=== PATIENT | male | born 1990 | race Hispanic/Latino ===

== ENCOUNTER 2019-06-10 22:57 | Emergency (ER) | payer BC ==
--- NOTE | 2019-06-11 00:06 | EDM.PDOC ---
ED HPI GENERAL MEDICAL PROBLEM - General Chief Complaint: Drug or Alcohol Abuse Stated Complaint: TOO MUCH ALCOHOL Time Seen by Provider: 06/11/19 00:05 - History of Present Illness INITIAL COMMENTS - FREE TEXT/NARRATIVE: 29-year-old male brought into the emergency room after having too much to drink. Patient states he had too much to drink. He does not drink have on a regular basis and does not plan on doing it again any time soon. He has some mild nausea no vomiting. He just doesn't feel very well. He denies any trauma trips or falls. Patient denies any significant past medical history he is not on any routine medications is not aware of any allergies. Bilateral Hand Pain Score (Numeric/FACES): 1 - Related Data Allergies Allergy/AdvReac Type Severity Reaction Status Date / Time No Known Allergies Allergy Verified 06/10/19 23:11 Home Meds: Home Meds . [Unable to Verify Home Med List] 06/10/19 [History] Past Medical History - Past Health History Medical/Surgical History: Denies Medical/Surgical History Musculoskeletal History: Reports: Other (See Below) Other Musculoskeletal History: shoulder issues (possible bicep and patino injury) Psychiatric History: Reports: ADHD, Bipolar - Infectious Disease History Infectious Disease History: Reports: Chicken Pox Social & Family History - Family History Family Medical History: Noncontributory - Tobacco Use Smoking Status *Q: Current Every Day Smoker Years of Tobacco use: 19 Packs/Tins Daily: 2 - Caffeine Use Caffeine Use: Reports: Coffee, Energy Drinks, Soda, Tea - Recreational Drug Use Recreational Drug Use: Yes Drug Use in Last 12 Months: Yes Recreational Drug Type: Reports: Marijuana/Hashish, Methamphetamine ED ROS GENERAL - Review of Systems Review Of Systems: See Below Constitutional: Reports: No Symptoms HEENT: Reports: No Symptoms Respiratory: Reports: No Symptoms Cardiovascular: Reports: No Symptoms GI/Abdominal: Reports: Nausea. Denies: Abdominal Pain, Constipation, Diarrhea, Vomiting : Reports: No Symptoms ED EXAM, GENERAL - Physical Exam Exam: See Below Exam Limited By: No Limitations General Appearance: Alert, No Apparent Distress, Other (He is intoxicated but cooperative) Ears: Normal External Exam, Normal Canal, Hearing Grossly Normal, Normal TMs Nose: Normal Inspection, Normal Mucosa, No Blood Throat/Mouth: Normal Inspection, Normal Lips, Normal Teeth, Normal Gums, Normal Oropharynx, Normal Voice, No Airway Compromise Head: Atraumatic, Normocephalic Neck: Normal Inspection, Supple, Non-Tender, Full Range of Motion. No: Lymphadenopathy (L), Lymphadenopathy (R) Respiratory/Chest: No Respiratory Distress, Lungs Clear, Normal Breath Sounds, No Accessory Muscle Use, Chest Non-Tender Cardiovascular: Normal Peripheral Pulses, Regular Rate, Rhythm, No Edema, No Gallop, No JVD, No Murmur, No Rub GI/Abdominal: Normal Bowel Sounds, Soft, No Mass Back Exam: Normal Inspection. No: CVA Tenderness (L), CVA Tenderness (R) Extremities: Normal Inspection, No Pedal Edema Neurological: Alert, Oriented, Other (His thought process is a little slow) Skin Exam: Warm, Dry, Intact Course - Vital Signs Last Recorded V/S: Last Vital Signs Temp 36.5 C 06/10/19 23:07 Pulse 93 06/10/19 23:07 Resp 19 06/10/19 23:07 BP 126/76 06/10/19 23:07 Pulse Ox 95 06/10/19 23:07 - Orders/Labs/Meds Orders: Active Orders 24 hr Category Date Time Status DRUG SCREEN, URINE [URCHEM] Stat Lab 06/11/19 00:18 Ordered URINALYSIS W/MICROSCOPIC [UA W/MICROSCOPIC] [URIN] Stat Lab 06/11/19 00:18 Ordered Labs: Laboratory Tests 06/11/19 06/11/19 Range/Units 00:35 00:35 WBC 10.06 H (4.23-9.07) K/mm3 RBC 5.21 (4.63-6.08) M/mm3 Hgb 15.9 (13.7-17.5) gm/dl Hct 46.6 (40.1-51.0) % MCV 89.4 (79.0-92.2) fl MCH 30.5 (25.7-32.2) pg MCHC 34.1 (32.2-35.5) g/dl RDW Std Deviation 41.8 (35.1-43.9) fL Plt Count 260 (163-337) K/mm3 MPV 8.4 L (9.4-12.3) fl Neutrophils % (Manual) 35 L (40-60) % Band Neutrophils % 0 (0-10) % Lymphocytes % (Manual) 49 H (20-40) % Atypical Lymphs % 0 % Monocytes % (Manual) 15 H (2-10) % Eosinophils % (Manual) 1 (0.8-7.0) % Basophils % (Manual) 0 L (0.2-1.2) Platelet Estimate Adequate Plt Morphology Comment Normal RBC Morph Comment Normal Sodium 141 (136-145) mEq/L Potassium 4.3 (3.5-5.1) mEq/L Chloride 107 (98-107) mEq/L Carbon Dioxide 22 (21-32) mEq/L Anion Gap 16.3 H (5-15) BUN 16 (7-18) mg/dL Creatinine 1.0 (0.7-1.3) mg/dL Est Cr Clr Drug Dosing 99.24 mL/min Estimated GFR (MDRD) > 60 (>60) mL/min BUN/Creatinine Ratio 16.0 (14-18) Glucose 102 (74-106) mg/dL Calcium 8.7 (8.5-10.1) mg/dL Total Bilirubin 0.8 (0.2-1.0) mg/dL AST 47 H (15-37) U/L ALT 169 H (16-63) U/L Alkaline Phosphatase 96 (46-116) U/L Total Protein 7.8 (6.4-8.2) g/dl Albumin 4.4 (3.4-5.0) g/dl Globulin 3.4 gm/dL Albumin/Globulin Ratio 1.3 (1-2) Ethyl Alcohol 0.14 (0.00) gm% Meds: Medications Discontinued Medications Generic Name Dose Route Start Last Admin Trade Name Nani PRN Reason Stop Dose Admin Acetaminophen 975 mg 06/11/19 05:23 Tylenol PO 06/11/19 05:24 ONETIME ONE Lactated Ringer's 1,000 mls @ 999 mls/hr 06/11/19 00:11 06/11/19 00:35 Ringers, Lactated IV 06/11/19 01:11 999 mls/hr .BOLUS ONE Administration Ondansetron HCl 4 mg 06/11/19 00:12 06/11/19 00:36 Zofran IVPUSH 06/11/19 00:13 4 mg ONETIME ONE Administration - Re-Assessments/Exams Free Text/Narrative Re-Assessment/Exam: 06/11/19 05:29 Patient is sobered up and has a little bit of a headache but he is doing much better he would like to go home. Departure - Departure Time of Disposition: :29 Disposition: Home, Self-Care 01 Clinical Impression: Alcohol intoxication - Discharge Information Referrals: PCP,None [Primary Care Provider] - Additional Instructions: Return to the emergency room with any questions problems or worsening symptoms. - My Orders Last 24 Hours: My Active Orders 06/11/19 00:18 DRUG SCREEN, URINE [URCHEM] Stat URINALYSIS W/MICROSCOPIC [UA W/MICROSCOPIC] [URIN] Stat - Assessment/Plan Last 24 Hours: My Active Orders 06/11/19 00:18 DRUG SCREEN, URINE [URCHEM] Stat URINALYSIS W/MICROSCOPIC [UA W/MICROSCOPIC] [URIN] Stat
[2019-06-11] MEDS ORDERED: Lactated Ringers 1,000 ML IV ONE (00:11)
[2019-06-11] MEDS ORDERED: Ondansetron 4 MG/2 ML SDV IVPUSH ONE (00:12)
[2019-06-11] MEDS ORDERED: Acetaminophen Soln 650 MG/20.3 ML UD Cup PO ONE (05:23)
== END 2019-06-11 05:45 | disposition home or self-care (01) ==
LOC: JD.ED 22:57
DX: F10.120 Alcohol abuse with intoxication, uncomplicated (principal); F17.210 Nicotine dependence, cigarettes, uncomplicated
CPT/HCPCS: 36415; 80053; 80320; 85007; 85027; 96361; 96374; 99284; A9270; J2405; J7120; 99283; G0480

== ENCOUNTER 2019-11-09 10:07 | Emergency (ER) | payer BC, MEDICAID ==
--- NOTE | 2019-11-09 10:40 | EDM.PDOC ---
ED HPI GENERAL MEDICAL PROBLEM - General Chief Complaint: Respiratory Problem Stated Complaint: COUGH/MUCUS/HEADACHE/CLOGGED EARS Time Seen by Provider: 11/09/19 10:29 Source of Information: Reports: Patient History Limitations: Reports: No Limitations - History of Present Illness INITIAL COMMENTS - FREE TEXT/NARRATIVE: 29-year-old male presents to the ED with an acute upper respiratory tract infection with marked nasal congestion low-grade fever no headache bilateral fullness in his ears with inability to equilibrate due to eustachian tube dysfunction. Harsh paroxysmal productive cough for the last 5 days coughed enough to vomit almost every hour during the night last night. Got sent home from work due to illness. Most 2 packs a day and vapes a good portion of the day as well. 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 In contact with people from [place] and [place]. Onset: Sudden Onset Date: 11/03/19 Duration: Day(s):, Getting Worse (More more short of breath.) Location: Reports: Face (Unable to equilibrate his eustachian tubes. Fullness in his ears and sinuses.), Chest Quality: Reports: Other Severity: Severe (Chest pain from coughing so hard) Improves with: Reports: None Worsens with: Reports: Other Context: Reports: Sick Contact. Denies: Activity (Coughing makes everything worse.), Exercise, Lifting, Trauma, Other (Workplace) Associated Symptoms: Reports: Chest Pain, Cough, cough w sputum, Fever/Chills, Loss of Appetite, Malaise, Shortness of Breath, Weakness. Denies: No Other Symptoms (Coughing so much.), Confusion, Diaphoresis, Nausea/Vomiting, Rash, Seizure, Syncope Treatments HOME COORDINATOR: Reports: Other (see below) Other Treatments HOME COORDINATOR: Nyquil Headache Pain Score (Numeric/FACES): 1 - Related Data Allergies Allergy/AdvReac Type Severity Reaction Status Date / Time No Known Allergies Allergy Verified 11/09/19 10:25 Home Meds: Home Meds Cefdinir [Omnicef] 300 mg PO BID #20 cap 11/09/19 [Rx] Hydrocodone/Chlorphen P-Stirex [Hydrocodone-Chlorphen ER Susp] 5 ml PO Q12H PRN #60 ml 11/09/19 [Rx] Loratadine/Pseudoephedrine [Claritin-D 12 Hour] 1 tab PO Q12HR #16 tab.er [Rx] Past Medical History - Past Health History Medical/Surgical History: Denies Medical/Surgical History Musculoskeletal History: Reports: Other (See Below) Other Musculoskeletal History: shoulder issues (possible bicep and patino injury) Psychiatric History: Reports: ADHD, Bipolar - Infectious Disease History Infectious Disease History: Reports: Chicken Pox Social & Family History - Family History Family Medical History: Noncontributory - Tobacco Use Smoking Status *Q: Current Every Day Smoker Years of Tobacco use: 17 Packs/Tins Daily: 2 - Caffeine Use Caffeine Use: Reports: Coffee, Energy Drinks, Soda - Recreational Drug Use Recreational Drug Use: Yes Drug Use in Last 12 Months: Yes Recreational Drug Type: Reports: Marijuana/Hashish Recreational Drug Use Frequency: Rarely - Living Situation & Occupation Living situation: Reports: (Children at home that have been ill last week as well with minor upper respiratory tract symptoms) Occupation: Employed ED ROS GENERAL - Review of Systems Review Of Systems: See Below Constitutional: Reports: Fever, Chills, Malaise, Weakness, Fatigue, Decreased Appetite, Other (Paroxysmal cough and shortness of breath). Denies: Weight Loss HEENT: Reports: Ear Pain, Sinus Problem (This in his ears and unable to equilibrate pressure due to eustachian tube occlusion. Particular over both maxillary sinuses) Respiratory: Reports: Shortness of Breath, Cough, Sputum, Hemoptysis (Has noted traces of blood in his coughing this morning.). Denies: Wheezing, Pleuritic Chest Pain Cardiovascular: Reports: Chest Pain, Dyspnea on Exertion. Denies: Blood Pressure Problem, Claudication (Upper chest pain from coughing so much.), Edema , Lightheadedness, Orthopnea Endocrine: Reports: Fatigue GI/Abdominal: Reports: Decreased Appetite : Reports: No Symptoms Musculoskeletal: Reports: No Symptoms Skin: Reports: No Symptoms Neurological: Reports: Dizziness, Weakness. Denies: Confusion, Headache, Numbness, Syncope, Tingling, Tremors, Trouble Speaking, Difficulty Walking Psychiatric: Reports: No Symptoms Hematologic/Lymphatic: Reports: No Symptoms Immunologic: Reports: No Symptoms ED EXAM, GENERAL - Physical Exam Exam: See Below Exam Limited By: No Limitations General Appearance: Alert, WD/WN, Moderate Distress, Other (Severe paroxysmal cough and shortness of breath. Vital signs are noted on the chart. Does not feel warm to palpation at this time.) Eye Exam: Bilateral Eye: Normal Inspection, PERRL Ear Exam: Right Ear: TM Dull, Left Ear: TM Bulging (Erythematous.) Nose: Nasal Drainage, Clear Rhinorrhea Throat/Mouth: Other (Loosely erythematous mostly from cigarette smoking no exudate apparent.) Head: Atraumatic, Normocephalic Neck: Normal Inspection, Supple, Non-Tender, Full Range of Motion. No: Lymphadenopathy (L), Lymphadenopathy (R) Respiratory/Chest: Lungs Clear, Normal Breath Sounds, Respiratory Distress ( Neck at rest 22/min), Decreased Breath Sounds ('s are minimally decreased to both lower lung lovell.), Other (Transmitted sounds from the upper respiratory tree.). No: Rhonchi, Wheezing Cardiovascular: Normal Peripheral Pulses, Regular Rate, Rhythm, No Edema, No Gallop, No Murmur, No Rub Peripheral Pulses: 3+: Posterior Tibial (L), Posterior Tibial (R), Dorsalis Pedis (L), Dorsalis Pedis (R) GI/Abdominal: Normal Bowel Sounds, Soft, Non-Tender, No Organomegaly, No Mass, Pelvis Stable Extremities: Normal Inspection, Normal Range of Motion, Non-Tender, No Pedal Edema, Normal Capillary Refill Neurological: Alert, Oriented, CN II-XII Intact, Normal Cognition Psychiatric: Normal Affect, Anxious Skin Exam: Warm, Dry, Intact, Normal Color, No Rash Course - Vital Signs Last Recorded V/S: Last Vital Signs Temp 36.1 C 11/09/19 13:05 Pulse 69 11/09/19 13:05 Resp 18 11/09/19 13:05 BP 134/87 11/09/19 13:05 Pulse Ox 97 11/09/19 13:05 - Orders/Labs/Meds Orders: Active Orders 24 hr Category Date Time Status CORONAVIRUS (COVID-19) PCR [MREF] Stat Lab 11/09/19 11:02 Received Isolation [COMM] Routine Oth 11/09/19 10:41 Ordered - Radiology Interpretation Free Text/Narrative:: Mica 9-year-old male presents to the ED with marked nasal congestion fullness in ears clinically has maxillary sinusitis very sore throat from coughing so much. Increasing dyspnea to the point of vomiting almost every hour from coughing so hard. Shortness of breath gradually worsening over the last 3 to 4 days. A heavy smoker 2 packs/day and vapes in between. Lower lung lovell sound clear without wheezes. He has bilateral serous otitis media. Marked maxillary sinusitis clinically. Oropharynx is diffusely erythematous Plan he will be screened for the [place] virus. He will fluids a screen and a chest x- ray performed. - Re-Assessments/Exams Free Text/Narrative Re-Assessment/Exam: 11/09/19 11:38 x-ray done portably reveals normal cardiac silhouette and visualized lung lovell to be completely clear with no signs of pneumonia. 11/09/19 12:24 Influenza screen came back negative as well. Full bed 19 screen was carried out and hopefully will have an answer by about 1030 tomorrow morning as it will be sent out at 1400 hrs. today to be tested at 7 tomorrow morning by [facility]. I will give him 2 days off of work and he actually will stay off work until Wednesday and self quarantine. Meantime I will start him on antibiotics Omnicef 300 mg twice daily for the next 10 days to clear up his sinus infection. Claritin-D 12-hour release 1 tablet every 12 hours necessary for relief of severe decongestion of his eustachian tubes. Tussionex cough syrup 5 mils every 12 hours as necessary to relieve his severe cough. Departure - Departure Time of Disposition: 12:26 Disposition: Home, Self-Care 01 Condition: Fair Clinical Impression: Bronchitis Sinusitis Qualifiers: Sinusitis location: pansinusitis Chronicity: acute Recurrence: recurrent Qualified Code(s): J01.41 - Acute recurrent pansinusitis Eustachian tube dysfunction Qualifiers: Laterality: bilateral Qualified Code(s): H69.83 - Other specified disorders of Eustachian tube, bilateral - Discharge Information *PRESCRIPTION DRUG MONITORING PROGRAM REVIEWED*: Not Applicable *COPY OF PRESCRIPTION DRUG MONITORING REPORT IN PATIENT AISHWARYA: Not Applicable Prescriptions: Loratadine/Pseudoephedrine [Claritin-D 12 Hour] 1 tab PO Q12HR #16 tab.er Cefdinir [Omnicef] 300 mg PO BID #20 cap Hydrocodone/Chlorphen P-Stirex [Hydrocodone-Chlorphen ER Susp] 5 ml PO Q12H PRN #60 ml PRN Reason: cough relief Instructions: Sinusitis, Adult, [id number] Referrals: PCP,None [Primary Care Provider] - Forms: ED Department Discharge, ED Return to Work/School Form Additional Instructions: Evaluation in the emergency room today in regards to upper respiratory tract infection with severe sinusitis which is blocking off your eustachian tubes which are draining your middle ears causing you to feel off kilter or imbalanced. Also hearing is muffled because the eustachian tubes cannot equilibrate due to occlusion. You also have's a severe harsh paroxysmal productive cough to the point of emesis that is been gradually getting worse over the last 3 to 4 days. Therefore screened for influenza in the emergency room and it proved to be negative. Because of your connection with people from [place] and other states covid- 19( coronovirus) testing was also carried out and the results should be available tomorrow morning. The test will get sent to the state lab about 1400 hrs. a day and the usually run them at 7 and 2: 00 daily. One will be in contact with you tomorrow with the results. I suspect you are negative. However you are to stay at home and self quarantine until the results are known to you. In the meantime treatment is antibiotic Omnicef 100 mg twice daily for the next 10 days to clear up sinus infection. Claritin-D 12-hour relief 1 tablet twice daily ideally Ruben 6:00 in the morning and 6:00 in the evening so as not to interfere with your sleep which will decongest her sinuses and open up your eustachian tubes and improve your balance. This is to be taken twice daily for the next 8 days. Third medicine is Tussionex cough syrup 5 mils every 12 hours as necessary for relief of severe cough. Take it about an hour before planning on going to bed as lying down usually makes coughing much worse. Suggest off work until Wednesday next week and note will be given in this regard. Sepsis Event Note - Evaluation Sepsis Screening Result: No Definite Risk - Focused Exam Vital Signs: Vital Signs Temp Pulse Resp BP Pulse Ox 11/09/19 13:05 36.1 C 69 18 134/87 97 11/09/19 10:59 36.5 C 80 18 125/79 98 Date Exam was Performed: 11/09/19 Time Exam was Performed: 15:29 - My Orders Last 24 Hours: My Active Orders 11/09/19 10:41 Isolation [COMM] Routine 11/09/19 11:02 CORONAVIRUS (COVID-19) PCR [MREF] Stat - Assessment/Plan Last 24 Hours: My Active Orders 11/09/19 10:41 Isolation [COMM] Routine 11/09/19 11:02 CORONAVIRUS (COVID-19) PCR [MREF] Stat
--- NOTE | 2019-11-09 11:53 | CR ---
Chest: Portable view of the chest was obtained. Comparison: No previous chest imaging. Heart size and mediastinum are normal. Lungs are clear. Bony structures are unremarkable. Impression: 1. Nothing acute is appreciated on portable chest x-ray. Diagnostic code #1 This report was dictated in MDT
== END 2019-11-09 13:05 | disposition home or self-care (01) ==
LOC: JD.ED 10:07
DX: J01.41 Acute recurrent pansinusitis (principal); J40 Bronchitis, not specified as acute or chronic; H69.93 Unspecified Eustachian tube disorder, bilateral; F17.210 Nicotine dependence, cigarettes, uncomplicated
CPT/HCPCS: 71045; 87804; 99283; U0001

== ENCOUNTER 2020-03-13 13:25 | Emergency (ER) | payer OTHER, MEDICAID ==
[2020-03-13] MEDS ORDERED: Ketorolac 30 MG/ML SDV IM ONE (14:29)
[2020-03-13] MEDS ORDERED: Orphenadrine 100 MG Tab.ER PO ONE (14:29)
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
[2020-03-13] MEDS ORDERED: traMADol 50 MG Tab PO ONE (15:17)
== END 2020-03-13 16:09 | disposition home or self-care (01) ==
LOC: JD.ED 13:25
DX: M54.41 Lumbago with sciatica, right side (principal); M54.42 Lumbago with sciatica, left side; F17.210 Nicotine dependence, cigarettes, uncomplicated
CPT/HCPCS: 96372; 99283; A9270; J1885

== ENCOUNTER 2020-10-18 22:20 | Emergency (ER) | payer MEDICAID ==
--- NOTE | 2020-10-18 22:51 | EDM.PDOC ---
ED HPI GENERAL MEDICAL PROBLEM - General Chief Complaint: Lower Extremity Injury/Pain Stated Complaint: RIGHT KNEE PAIN JUMPED ONTO THE KNEE Time Seen by Provider: 10/18/20 22:27 Source of Information: Reports: Patient History Limitations: Reports: No Limitations - History of Present Illness INITIAL COMMENTS - FREE TEXT/NARRATIVE: This is a 30-year-old male. Apparently he was jumping up on some scaffolding that was low level and he would jump up on the platform but landed on his knees and then stand up. Yesterday he kind of missed and hit the edge of the scaffolding with his knees but did not seem to have any pain at the time. He finished the day out with no difficulty. When he woke up this morning however he had right knee pain that is continued to get worse and worse. He feels some popping in that knee which makes pain even worse. He is not able to bear weight on that right knee very much. So he comes to the ER for evaluation. Denies any other acute symptoms. It is his right knee that is causing his pain but not his left knee. right knee Pain Score (Numeric/FACES): 8 - Related Data Allergies Allergy/AdvReac Type Severity Reaction Status Date / Time No Known Allergies Allergy Verified 03/13/20 13:48 Home Meds: Home Meds Orphenadrine [Norflex] 100 mg PO BID PRN #20 tab 03/13/20 [Rx] predniSONE 20 mg PO ASDIRECTED #15 tab 03/13/20 [Rx] traMADol [Ultram] 50 mg PO Q6H PRN #15 tab 03/13/20 [Rx] Hydrocodone/Acetaminophen [Hydrocodone-Acetamin 5-325 mg] 1 each PO Q6H PRN #12 tablet 10/18/20 [Rx] Past Medical History - Past Health History Medical/Surgical History: Denies Medical/Surgical History Musculoskeletal History: Reports: Other (See Below) Other Musculoskeletal History: shoulder issues (possible bicep and patino injury) Psychiatric History: Reports: ADHD, Bipolar - Infectious Disease History Infectious Disease History: Reports: Chicken Pox Social & Family History - Family History Family Medical History: No Pertinent Family History - Tobacco Use Tobacco Use Status *Q: Current Every Day Tobacco User Years of Tobacco use: 1 Packs/Tins Daily: 1 - Caffeine Use Caffeine Use: Reports: Coffee, Energy Drinks, Soda - Recreational Drug Use Recreational Drug Use: Yes Recreational Drug Type: Reports: Marijuana/Hashish Recreational Drug Use Frequency: Socially - Living Situation & Occupation Living situation: Reports: (Children at home that have been ill last week as well with minor upper respiratory tract symptoms) Occupation: Employed Review of Systems - Review of Systems Review Of Systems: See Below Constitutional: Denies: Chills, Fever Eyes: Reports: No Symptoms Ears: Reports: No Symptoms Nose: Reports: No Symptoms Mouth/Throat: Reports: No Symptoms Respiratory: Reports: No Symptoms Cardiovascular: Reports: No Symptoms GI/Abdominal: Reports: No Symptoms Genitourinary: Reports: No Symptoms Musculoskeletal: Reports: Other (Right knee pain) Skin: Reports: No Symptoms Neurological: Reports: No Symptoms Psychiatric: Reports: No Symptoms ED EXAM, GENERAL - Physical Exam Exam: See Below Exam Limited By: No Limitations General Appearance: Alert, WD/WN, No Apparent Distress Eye Exam: Bilateral Eye: Normal Inspection Ears: Normal External Exam Nose: Normal Inspection Throat/Mouth: Normal Inspection, Normal Lips, Normal Voice, No Airway Compromise Head: Normocephalic Neck: Supple Respiratory/Chest: No Respiratory Distress Back Exam: Full Range of Motion Extremities: Other (Right knee appears to have some swelling over the patellar tibial tendon area on observation. Negative anterior and posterior drawer sign. His joint lines are minimally tender. His collateral ligaments do not appear to be lax or tender. But over his patella and the patellar tibial tendon he has marked pain. Patellar movement causes marked increased pain of his right knee.) Neurological: Alert, Oriented Psychiatric: Normal Affect Skin Exam: Warm, Dry Course - Vital Signs Last Recorded V/S: Last Vital Signs Temp 97.5 F 10/18/20 22:33 Pulse 95 10/18/20 22:33 Resp 16 10/18/20 22:33 BP 117/66 10/18/20 22:33 Pulse Ox 96 10/18/20 22:33 - Orders/Labs/Meds Orders: Active Orders 24 hr Category Date Time Status Knee Min 4V Rt [CR] Stat Exams 10/18/20 22:45 Taken - Radiology Interpretation Free Text/Narrative:: X-rays of the right knee do not show any acute bone abnormalities. - Re-Assessments/Exams Free Text/Narrative Re-Assessment/Exam: 10/18/20 23:15 02 the patient regarding the x-rays. I am going to put him in a knee immobilizer and crutches. He is to follow-up with the clinical implementation specialist this coming week for recheck. Departure - Departure Time of Disposition: 23:17 Disposition: Home, Self-Care 01 Condition: Fair Clinical Impression: Contusion of right knee Qualifiers: Encounter type: initial encounter Qualified Code(s): S80.01XA - Contusion of right knee, initial encounter Patellar disorder Qualifiers: Laterality: right Qualified Code(s): M22.91 - Unspecified disorder of patella, right knee - Discharge Information *PRESCRIPTION DRUG MONITORING PROGRAM REVIEWED*: No *COPY OF PRESCRIPTION DRUG MONITORING REPORT IN PATIENT AISHWARYA: No Prescriptions: Hydrocodone/Acetaminophen [Hydrocodone-Acetamin 5-325 mg] 1 each PO Q6H PRN #12 tablet PRN Reason: Pain Instructions: Contusion, [id number], Crutch Use, Adult, [id number] Referrals: Tl Grady MD [Physician] - Forms: ED Department Discharge Additional Instructions: Keep the right knee elevated and iced down as much as possible but do not freeze your skin, use the knee immobilizer and the crutches when you are up and do not bear weight on that right knee, take the medication as needed for pain, follow- up with the clinical implementation specialist Dr. rGady by calling his office Wednesday and getting an appointment to be seen, return to the ER if needed. Sepsis Event Note (ED) - Evaluation Sepsis Screening Result: No Definite Risk - Focused Exam Vital Signs: Vital Signs Temp Pulse Resp BP Pulse Ox 10/18/20 22:33 97.5 F 95 16 117/66 96 - My Orders Last 24 Hours: My Active Orders 10/18/20 22:45 Knee Min 4V Rt [CR] Stat - Assessment/Plan Last 24 Hours: My Active Orders 10/18/20 22:45 Knee Min 4V Rt [CR] Stat
[2020-10-18] MEDS ORDERED: Acetaminophen/oxyCODONE 325-5 MG Tab PO ONE (23:29)
--- NOTE | 2020-10-20 11:35 | CR ---
Right knee: 4 views of the right knee were obtained. Comparison: No prior knee study is available. No discrete joint effusion is seen. Medial and lateral joint compartments are maintained in height. No acute fracture, dislocation or other bony abnormality is appreciated. Impression: 1. No acute osseous finding is appreciated on right knee exam. Diagnostic code #1
== END 2020-10-18 23:37 | disposition home or self-care (01) ==
LOC: JD.ED 22:20
DX: S80.01XA Contusion of right knee, initial encounter (principal); Z72.0 Tobacco use; W12.XXXA Fall on and from scaffolding, initial encounter
CPT/HCPCS: 73564; 99283; A9270

== ENCOUNTER 2021-06-07 15:29 | Emergency (ER) | payer MEDICAID ==
--- NOTE | 2021-06-07 17:13 | EDM.PDOC ---
ED HPI GENERAL MEDICAL PROBLEM - General Chief Complaint: Respiratory Problem Stated Complaint: NEEDS COVID TEST Time Seen by Provider: 06/07/21 16:04 Source of Information: Reports: Patient, RN Notes Reviewed History Limitations: Reports: No Limitations - History of Present Illness INITIAL COMMENTS - FREE TEXT/NARRATIVE: Patient is a 31-year-old male presenting to the emergency department with request of having Covid testing completed. He lives in a household with Covid positive individual. Reports last few days has been having body aches, cough, and loss of taste and smell. Denies any known fevers. He does not feel significantly short of breath. He has no chronic medical conditions. Generalized Pain Score (Numeric/FACES): 5 - Related Data Allergies Allergy/AdvReac Type Severity Reaction Status Date / Time No Known Allergies Allergy Verified 06/07/21 16:10 Home Meds: Home Meds . [No Known Home Meds] 06/07/21 [History] Past Medical History - Past Health History Medical/Surgical History: Denies Medical/Surgical History Musculoskeletal History: Reports: Other (See Below) Other Musculoskeletal History: shoulder issues (possible bicep and patino injury) Psychiatric History: Reports: ADHD, Bipolar - Infectious Disease History Infectious Disease History: Reports: Chicken Pox Social & Family History - Family History Family Medical History: No Pertinent Family History - Tobacco Use Tobacco Use Status *Q: Light Tobacco User Years of Tobacco use: 10 Packs/Tins Daily: 0.2 - Caffeine Use Caffeine Use: Reports: Coffee, Energy Drinks, Soda - Recreational Drug Use Recreational Drug Use: Yes Recreational Drug Type: Reports: Marijuana/Hashish - Living Situation & Occupation Living situation: Reports: (Children at home that have been ill last week as well with minor upper respiratory tract symptoms) Occupation: Employed ED ROS GENERAL - Review of Systems Review Of Systems: Comprehensive ROS is negative, except as noted in HPI. ED EXAM, GENERAL - Physical Exam Exam: See Below Exam Limited By: No Limitations General Appearance: Alert, WD/WN, No Apparent Distress Respiratory/Chest: No Respiratory Distress, Lungs Clear, Normal Breath Sounds, No Accessory Muscle Use, Chest Non-Tender Cardiovascular: Normal Peripheral Pulses, Regular Rate, Rhythm, No Edema, No Gallop, No JVD, No Murmur, No Rub GI/Abdominal: Normal Bowel Sounds, Soft, Non-Tender, No Organomegaly, No Distention, No Abnormal Bruit, No Mass Neurological: Alert, Oriented, CN II-XII Intact, Normal Cognition, Normal Gait, Normal Reflexes, No Motor/Sensory Deficits Psychiatric: Normal Affect, Normal Mood Skin Exam: Warm, Dry, Intact, Normal Color, No Rash Course - Vital Signs Last Recorded V/S: Last Vital Signs Temp 97.9 F 06/07/21 16:09 Pulse 100 06/07/21 16:09 Resp 17 06/07/21 16:09 BP 106/69 06/07/21 16:09 Pulse Ox 97 06/07/21 16:09 - Orders/Labs/Meds Labs: Laboratory Tests 06/07/21 Range/Units 15:30 SARS-CoV-2 RNA (SINA) Positive H (NEGATIVE) - Re-Assessments/Exams Free Text/Narrative Re-Assessment/Exam: Patient is a 31-year-old male presenting to the emergency department for Covid testing. One of the individuals in his household tested Covid positive and he has been having mild Covid symptoms. Vital signs on triage are normal. He is afebrile at 97.9. Oxygen saturations 97% on room air. Lung sounds are clear to auscultation. I ordered Covid testing. 06/07/21 17:12 Covid test is positive. Discussed symptomatic treatment as well as return precautions. Discharge instructions as documented. Departure - Departure Time of Disposition: 17:12 Disposition: Home, Self-Care 01 Condition: Good Clinical Impression: COVID-19 - Discharge Information *PRESCRIPTION DRUG MONITORING PROGRAM REVIEWED*: No *COPY OF PRESCRIPTION DRUG MONITORING REPORT IN PATIENT AISHWARYA: No Instructions: COVID-19 Referrals: PCP,None [Primary Care Provider] - Additional Instructions: You were seen in the emergency department today for Covid testing. Covid test was completed and found to be positive. Your vital signs were stable. Your lung sounds are clear. Recommended she go home and rest. Ensure that you are taking an adequate amount of fluid. You may use Tylenol or ibuprofen as needed for fever or discomfort. I would recommend that you purchase a home pulse oximeter. These may be purchased at [facility] or most pharmacies. Monitor your oxygen saturations intermittently. If you are maintaining saturation below 89% or you experience any other new or worsening symptoms of concern, please return to the emergency department for reevaluation. Sepsis Event Note (ED) - Focused Exam Vital Signs: Vital Signs Temp Pulse Resp BP Pulse Ox 06/07/21 16:09 97.9 F 100 17 106/69 97
== END 2021-06-07 18:36 | disposition home or self-care (01) ==
LOC: JD.ED 15:29
DX: U07.1 COVID-19 (principal); Z72.0 Tobacco use
CPT/HCPCS: 99283; U0002

== ENCOUNTER 2021-07-25 02:26 | Emergency (ER) | payer MEDICAID ==
[2021-07-25] MEDS ORDERED: Ketorolac 15 MG/ML SDV IM ONE (03:08)
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
== END 2021-07-25 03:40 | disposition home or self-care (01) ==
LOC: JD.ED 02:26
DX: J01.90 Acute sinusitis, unspecified (principal); Z72.0 Tobacco use
CPT/HCPCS: 96372; 99283; J1885

== ENCOUNTER 2021-09-12 20:54 | Emergency (ER) | payer MEDICAID ==
[2021-09-12] MEDS ORDERED: Loperamide 2 MG Cap PO STA (21:26)
[2021-09-12] MEDS ORDERED: Sodium Chloride 0.9% 1,000 ML IV ONE (21:26)
[2021-09-12] MEDS ORDERED: Ondansetron 4 MG/2 ML SDV IVPUSH ONE (21:26)
== END 2021-09-12 22:59 | disposition home or self-care (01) ==
LOC: JD.ED 20:54
DX: K52.9 Noninfective gastroenteritis and colitis, unspecified (principal); F19.90 Other psychoactive substance use, unspecified, uncomplicated; Z72.0 Tobacco use
CPT/HCPCS: 36415; 74018; 80053; 83605; 83690; 83735; 85025; 86140; 87635; 87804; 96374; 99284; A9270; J2405; J7030; U0002

== ENCOUNTER 2022-12-06 23:02 | Emergency (ER) | payer SELFPAY | END 2022-12-07 00:14 | disposition left against medical advice (07) | LOC: JD.ED 23:02 | DX: S99.912A Unspecified injury of left ankle, initial encounter (principal); Z53.21 Procedure and treatment not carried out due to patient leaving prior to being seen by health care provider ==

== ENCOUNTER 2024-04-28 18:18 | Emergency (ER) | payer OTHER ==
[2024-04-28] MEDS ORDERED: Naloxone 0.4 MG/ML SDV IVPUSH PRN (20:09)
[2024-04-28] MEDS: Sodium Chloride 0.9% 10 ML Syringe FLUSH PRN (20:35)
[2024-04-28] MEDS: Ondansetron 4 MG/2 ML SDV IVPUSH PRN (20:35)
[2024-04-28] MEDS: Morphine 4 MG/ML Syringe IVPUSH ONE (20:35)
[2024-04-28 20:36] LABS: BASOPHILS ABSOLUTE AUTO 0.1 K/mm3 (0.0-0.2); BASOPHILS PERCENT AUTO 0.4 % (0.0-1.0); EOSINOPHILS ABSOLUTE AUTO 0.2 K/mm3 (0.0-0.4); EOSINOPHILS PERCENT AUTO 1.7 % (0.0-6.0); HEMATOCRIT 43.9 % (42.0-52.0); HEMOGLOBIN 14.9 gm/dl (14.0-18.0); IMMATURE GRAN ABSOLUTE AUTO 0.03 K/mm3 (0.00-0.05); IMMATURE GRAN PERCENT AUTO 0.3 % (0.0-0.4); LYMPHOCYTES ABSOLUTE AUTO 4.3 K/mm3 (1.0-4.8); LYMPHOCYTES PERCENT AUTO 37.6 % (24.0-44.0); MEAN CORPUSCULAR HEMOGLOBIN 30.7 pg (28.0-32.0); MEAN CORPUSCULAR HGB CONC 33.9 g/dl (32.0-36.0); MEAN CORPUSCULAR VOLUME 90.5 fl (83.0-99.0); MEAN PLATELET VOLUME 8.3 fl (9.4-12.4); MONOCYTES ABSOLUTE AUTO 1.3 K/mm3 (0.0-0.8); MONOCYTES PERCENT AUTO 11.6 % (0.0-8.0); NEUTROPHILS ABSOLUTE AUTO 5.6 K/mm3 (1.8-7.7); NEUTROPHILS PERCENT AUTO 48.4 % (41.0-71.0); PLATELET COUNT,PLT 248 K/mm3 (150-400); RED BLOOD CELL COUNT 4.85 M/mm3 (4.52-5.90)
[2024-04-28 20:57] LABS: A/G RATIO 1.5 (1-2); ALBUMIN 4.5 g/dl (3.4-5.0); ANION GAP 16.1 (5-15); BILIRUBIN TOTAL 0.4 mg/dL (0.2-1.0); BUN/CREATININE RATIO 12.5 (14-18); CALCIUM 9.2 mg/dL (8.5-10.1); CREATININE 1.2 mg/dL (0.7-1.3); EST CRCL DRUG DOSING (CG) 81.86 mL/min; POTASSIUM,K 4.1 mEq/L (3.5-5.1); PROTEIN TOTAL,TP 7.6 g/dl (6.4-8.2)
== END 2024-04-28 22:25 | disposition home or self-care (01) ==
LOC: JD.ED 18:18
DX: S40.011A Contusion of right shoulder, initial encounter (principal); W17.89XA Other fall from one level to another, initial encounter
CPT/HCPCS: 36415; 71250; 72125; 73060; 73080; 73200; 80053; 82550; 83735; 85025; 96374; 96375; 99284; J2270; J2405; J3490

== ENCOUNTER 2024-04-30 11:03 | Emergency (ER) | payer OTHER ==
[2024-04-30] MEDS: Ketorolac 60 MG/2 ML SDV IM ONE (11:57)
== END 2024-04-30 13:57 | disposition home or self-care (01) ==
LOC: JD.ED 11:03
DX: S40.011S Contusion of right shoulder, sequela (principal); Z86.16 Personal history of COVID-19; W22.8XXA Striking against or struck by other objects, initial encounter
CPT/HCPCS: 73200; 96372; 99284; J1885; 99283

== ENCOUNTER 2025-02-28 10:13 | Emergency (ER) | payer OTHER | END 2025-02-28 10:52 | disposition home or self-care (01) | LOC: JD.ED 10:13 | DX: L72.0 Epidermal cyst (principal); R00.0 Tachycardia, unspecified; R03.0 Elevated blood-pressure reading, without diagnosis of hypertension; Z86.16 Personal history of COVID-19 | CPT/HCPCS: 99283 ==